=== PATIENT | female | born 1930 | race Caucasian/White ===

== ENCOUNTER 2020-11-06 13:50 | Inpatient (IN) | payer MEDICARE, BC ==
--- NOTE | 2020-11-06 14:15 | EDM.PDOC ---
ED HPI GENERAL MEDICAL PROBLEM - General Chief Complaint: General Stated Complaint: ER Time Seen by Provider: 11/06/20 13:50 Source of Information: Reports: EMS, RN History Limitations: Reports: Altered Mental Status - History of Present Illness INITIAL COMMENTS - FREE TEXT/NARRATIVE: Patient comes into the emergency department with EMS with complaints of an episode of discoloration at the lunch table. Patient is a resident at the local care center and they had stated that the patient was eating lunch and she began to turn blue. Patient is a nonverbal individual who is not able to express her needs. They ended up placing her on an oxygen saturation upon that she was in the 80s he ended up calling 911. Bedtime at 9 1 responders were on scene the patient was back up in the high 90s and color tone was back to normal. The patient never lost responsiveness according to the staff's report. The patient always remained upright. It is unnoted if she had food particles in her mouth but it does not appear that she was coughing according to the EMS report. Patient remained at her baseline by the time that she left care center until she arrived at the emergency department. Is also noted that she did have an abnormal heartbeat according to the retirement staff however is not been noted via EMS or hospital Onset: Sudden Duration: Other Location: Reports: Chest Quality: Reports: Ache Improves with: Reports: None Worsens with: Reports: None Associated Symptoms: Reports: Other - Related Data Allergies Allergy/AdvReac Type Severity Reaction Status Date / Time Sulfa (Sulfonamide Allergy Other Verified 11/06/20 15:22 Antibiotics) Home Meds: Home Meds Acetaminophen [Pain Relief] 650 mg PO Q4H PRN 03/29/15 [History] Aspirin 81 mg PO BRK 03/29/15 [History] Bisacodyl [Dulcolax] 10 mg RECTAL DAILY PRN 03/29/15 [History] Docusate Sodium/Sennosides [Senna Plus] 1 tab PO BID 03/29/15 [History] Donepezil HCl 10 mg PO DAILY 03/29/15 [History] Enoxaparin [Lovenox] 40 mg SUBCUT DAILY 03/29/15 [History] Hydrochlorothiazide 1 tab PO DAILY 03/29/15 [History] Hydrocodone/Acetaminophen [Hydrocodon-Acetaminophen 5-325] 1 each PO Q4H 03/29/15 [History] LORazepam [Ativan] 0.25 mg PO Q4H PRN 03/29/15 [History] Lisinopril 10 mg PO DAILY 03/29/15 [History] Magnesium Hydroxide [Milk of Magnesia] 400 mg PO DAILY 03/29/15 [History] Melatonin 3 mg PO BEDTIME PRN 03/29/15 [History] Multivitamin [Multi-Day Vitamins] 1 each PO DAILY 03/29/15 [History] Phosphorus #1 [Phospha 250 Neutral Tablet] 250 mg PO DAILY 03/29/15 [History] diphenhydrAMINE HCl [Diphenhydramine HCl] 25 mg PO DAILY PRN 03/29/15 [History] traMADol HCl [Ultram] 50 mg PO Q6H PRN 03/29/15 [History] clindamycin HCL [Clindamycin HCl] 300 mg PO TID 7 Days #21 capsule 11/06/20 [Rx] Past Medical History Cardiovascular History: Reports: CAD Musculoskeletal History: Reports: Osteoarthritis Neurological History: Reports: Alzheimers Disease Oncologic (Cancer) History: Reports: Colon, Uterine - Past Surgical History Musculoskeletal Surgical History: Reports: Other (See Below) ED ROS GENERAL - Review of Systems Review Of Systems: Comprehensive ROS is negative, except as noted in HPI. Constitutional: Reports: No Symptoms HEENT: Reports: No Symptoms Respiratory: Reports: Shortness of Breath Cardiovascular: Reports: No Symptoms Endocrine: Reports: No Symptoms GI/Abdominal: Reports: No Symptoms : Reports: No Symptoms Musculoskeletal: Reports: No Symptoms Skin: Reports: No Symptoms Neurological: Reports: No Symptoms Psychiatric: Reports: No Symptoms Hematologic/Lymphatic: Reports: No Symptoms Immunologic: Reports: No Symptoms ED EXAM, GENERAL - Physical Exam Exam: See Below Exam Limited By: No Limitations General Appearance: Alert, WD/WN, No Apparent Distress Eye Exam: Bilateral Eye: EOMI, PERRL Throat/Mouth: Normal Inspection, Normal Lips, Normal Teeth, Normal Gums, Normal Oropharynx, Normal Voice, No Airway Compromise Head: Atraumatic, Normocephalic Neck: Normal Inspection, Supple, Non-Tender, Full Range of Motion Respiratory/Chest: No Respiratory Distress, Lungs Clear, Normal Breath Sounds, No Accessory Muscle Use, Chest Non-Tender Cardiovascular: Normal Peripheral Pulses, Regular Rate, Rhythm, No Edema #1 Interpretation EKG Date: 11/06/20 Rhythm: NSR Rate (Beats/Min): 94 [place]: Normal P-Wave: Present ST-T: Normal QT: Normal Comparison: NA - No Prior EKG Course - Orders/Labs/Meds Orders: Active Orders 24 hr Category Date Time Status EKG Documentation Completion [RC] STAT Care 11/06/20 13:59 Active CBC WITH AUTO DIFF [HEME] Stat Lab 11/06/20 14:40 Received COMPREHENSIVE METABOLIC PN,CMP [CHEM] Stat Lab 11/06/20 14:40 Received CREATINE KINASE,CK [CHEM] Stat Lab 11/06/20 14:40 Received CULTURE BLOOD [BC] Stat Lab 11/06/20 14:26 Ordered CULTURE BLOOD [BC] Stat Lab 11/06/20 14:26 Ordered LACTIC ACID [CHEM] Stat Lab 11/06/20 14:40 Received TROPONIN I HIGH SENSITIVITY [CHEM] Stat Lab 11/06/20 14:40 Received Blood Culture x2 Reflex Set [OM.PC] Stat Oth 11/06/20 14:26 Ordered Meds: Medications Discontinued Medications Generic Name Dose Route Start Last Admin Trade Name Mannyq PRN Reason Stop Dose Admin Clindamycin HCl 1 packet 11/06/20 15:05 Take Home: Clindamycin Hcl 150 Mg Cap, 6 Cap Pack PO 11/06/20 15:06 ONETIME ONE Ceftriaxone Sodium 1 gm/ 0 gm 11/06/20 14:25 Lidocaine HCl 2.1 ml IM 11/06/20 14:26 ONETIME ONE Departure - Departure Time of Disposition: 15:20 Disposition: Admitted As Inpatient 67 Condition: Fair Clinical Impression: Aspiration into airway Qualifiers: Encounter type: initial encounter Qualified Code(s): T17.908A - Unspecified foreign body in respiratory tract, part unspecified causing other injury, initial encounter Aspiration pneumonia Qualifiers: Aspiration pneumonia type: unspecified Laterality: unspecified laterality Lung location: unspecified part of lung Qualified Code(s): J69.0 - Pneumonitis due to inhalation of food and vomit - Discharge Information *PRESCRIPTION DRUG MONITORING PROGRAM REVIEWED*: Not Applicable *COPY OF PRESCRIPTION DRUG MONITORING REPORT IN PATIENT RIVER: Not Applicable Prescriptions: clindamycin HCL [Clindamycin HCl] 300 mg PO TID 7 Days #21 capsule Additional Instructions: 1. rest 2. increase your water intake 3. Take all antibiotics as prescribed even if feeling better 4. Take a probiotic while on antibiotics to help promote healthy GI motility 5. Activity and diet as tolerated 6. Can use Ibuprofen and tylenol for any fever or discomfort 7. Follow up with your PCP or return if symptoms progress or worsen 8. Education provided to you regarding your illness, probiotics, antibiotic prescribed 9. Call with any questions or concerns 10. Would advise cutting up food for patient or having nurtition specialist evaluate safe food intake for the patient to prevent this in the future. - My Orders Last 24 Hours: My Active Orders 11/06/20 13:59 EKG Documentation Completion [RC] STAT 11/06/20 14:26 CULTURE BLOOD [BC] Stat CULTURE BLOOD [BC] Stat Blood Culture x2 Reflex Set [OM.PC] Stat 11/06/20 14:40 CBC WITH AUTO DIFF [HEME] Stat COMPREHENSIVE METABOLIC PN,CMP [CHEM] Stat CREATINE KINASE,CK [CHEM] Stat LACTIC ACID [CHEM] Stat TROPONIN I HIGH SENSITIVITY [CHEM] Stat - Assessment/Plan Last 24 Hours: My Active Orders 11/06/20 13:59 EKG Documentation Completion [RC] STAT 11/06/20 14:26 CULTURE BLOOD [BC] Stat CULTURE BLOOD [BC] Stat Blood Culture x2 Reflex Set [OM.PC] Stat 11/06/20 14:40 CBC WITH AUTO DIFF [HEME] Stat COMPREHENSIVE METABOLIC PN,CMP [CHEM] Stat CREATINE KINASE,CK [CHEM] Stat LACTIC ACID [CHEM] Stat TROPONIN I HIGH SENSITIVITY [CHEM] Stat Assessment:: 1. low O2 2. blue episode while eating 3. Aspiration pneumonia Plan: 1. Sepsis protocol initiated and followed 2. Labs completed in the ER. Results reviewed with the patient 3. Blood cultures completed 4. IV initiated in the emergency department 5. IV fluids provided 6. EKG completed in ER. 7. Rocephin 1gm given 8. Consultation complete with Dr. Ponce. Patient will be admitted to acute care 9. Patient and nursing staff was updated regarding the plan of care 10. Patient and family are agreeable to the above plan of care 11. All questions and concerns were addressed with the patient and family prior to discharge
[2020-11-06] MEDS ORDERED: cefTRIAXone 1 GM, Lidocaine 1% 2.1 ML IM ONE ×2 (14:25)
--- NOTE | 2020-11-06 15:03 | CR ---
[id number] RAD/RAD Chest PA or AP 1V EXAM: SINGLE VIEW CHEST. INDICATION: HYPOXIA COMPARISON: NO PREVIOUS SIMILAR EXAM IS AVAILABLE FINDINGS: There is no pneumonia or edema. The thoracic aorta is tortuous The cardiac silhouette is enlarged IMPRESSION: NO PNEUMONIA OR EDEMA Malvin Barnard MD 11/06/20 [id number] Thank you for allowing us to participate in the care of your patient.
[2020-11-06] MEDS ORDERED: Take Home: Clindamycin HCl 150 MG Cap, 6 Cap Pack PO ONE (15:05)
[2020-11-06 15:16] LABS: CHLORIDE,CL 106 mmol/L (98-107); SODIUM,NA 140 mmol/L (136-145)
[2020-11-06 15:25] LABS: ANION GAP 11.3 mmol/L (5-15)
[2020-11-06] MEDS ORDERED: Sodium Chloride 0.9% 1,000 ML IV ONE (16:06)
[2020-11-06] MEDS ORDERED: Sodium Chloride 0.9% 10 ML Syringe FLUSH PRN (16:37)
[2020-11-06] MEDS ORDERED: Acetaminophen 325 MG Tab PO PRN (16:37)
[2020-11-06] MEDS: Clindamycin Phosphate in D5W 600 MG in Premix Bag 1 BAG IV SCH ×2 (17:44)
[2020-11-06] MEDS: Donepezil 10 MG Tab PO SCH (19:27)
[2020-11-07] MEDS: Clindamycin Phosphate in D5W 600 MG in Premix Bag 1 BAG IV SCH ×6 (00:18→16:43)
[2020-11-07] MEDS: Dextrose 5%-0.45% NaCl 1,000 ML IV SCH ×2 (00:28→15:38)
[2020-11-07] MEDS: Lisinopril 5 MG Tab PO SCH (07:38)
[2020-11-07] MEDS: cefTRIAXone 1 GM Vial IVPUSH SCH (07:39)
[2020-11-07] MEDS: Aspirin 81 MG Tab.EC PO SCH (07:39)
[2020-11-07] MEDS ORDERED: Enoxaparin 30 MG/0.3 ML Syringe SUBCUT SCH (12:00)
[2020-11-07] MEDS: Donepezil 10 MG Tab PO SCH (19:18)
[2020-11-08] MEDS: Clindamycin Phosphate in D5W 600 MG in Premix Bag 1 BAG IV SCH ×4 (00:10→08:00)
[2020-11-08 07:23] LABS: ANION GAP 9.6 mmol/L (5-15)
[2020-11-08] MEDS: Lisinopril 5 MG Tab PO SCH (07:54)
[2020-11-08] MEDS: Aspirin 81 MG Tab.EC PO SCH (07:54)
[2020-11-08] MEDS: cefTRIAXone 1 GM Vial IVPUSH SCH (07:54)
[2020-11-08 10:15] VITALS: BP 121/78; PULSE 95
--- NOTE | 2020-11-08 12:43 | PCM.DCSUM1 ---
Discharge Summary - Hospital Course Free Text/Narrative:: 89 yo admitted after a choking episode at [facility] then she become hypoxic and turned blue after eating on 11/06. She has dementia so history is limited from her. WBC was 19,000. She got IV rocephin and Clindamycin. She required oxygen. Brief History: Patient admitted for hypoxia after choking. Chest x-ray did not yet show an infiltrate but she was requiring oxygen and WBC 19,000. There was concern for aspiration pneumonia. She was placed on IV rocephin and IV clindamycin but was able to eat and drink and WBC count returned to normal today and she was felt to be at her baseline which is confusion due to dementia so plans were made to d/c her back to [facility]. Both of her COVID tests returned normal. She was able to be weaned off oxygen. Diagnosis: Stroke: No - Discharge Data Discharge Date: 11/08/20 Discharge Disposition: DC/Tfer to [facility] 64 Condition: Fair - Referral to Home Health Primary Care Physician: Crista Sequeira MD - Patient Instructions Diet: Usual Diet as Tolerated Activity: As Tolerated Driving: Do Not Drive Notify Provider of: Fever, Increased Pain, Swelling and Redness, Nausea and/or Vomiting Other/Special Instructions: Stop Keflex. Augmentin twice daily for 3 more days or 5 doses. Return to [facility] with PT/OT/Speech eval. [facility] standing orders. Recheck with Dr. Sequeira on [place] rounds - Discharge Plan *PRESCRIPTION DRUG MONITORING PROGRAM REVIEWED*: Not Applicable *COPY OF PRESCRIPTION DRUG MONITORING REPORT IN PATIENT RIVER: Not Applicable Prescriptions/Med Rec: Amoxicillin/Clavulanate K [Augmentin 600-42.9 MG/5 ML Susp] 600 mg PO BIDMEALS 2 Days #1 bottle Home Medications: Home Meds Aspirin 81 mg PO DAILY 03/29/15 [History] Docusate Sodium/Sennosides [Senna Plus] 1 tab PO MOWEFR@0800 03/29/15 [History] Donepezil HCl 10 mg PO ACDINNER 03/29/15 [History] Hydrochlorothiazide 12.5 mg PO DAILY 03/29/15 [History] Multivitamin [Multi-Day Vitamins] 1 tab PO DAILY 03/29/15 [History] cephALEXin [Cephalexin] 500 mg PO BID 11/06/20 [History] lisinopriL [Lisinopril] 5 mg PO DAILY 11/06/20 [History] Acetaminophen [Tylenol] 650 mg PO Q4H PRN tablet 11/08/20 [Rx] Amoxicillin/Clavulanate K [Augmentin 600-42.9 MG/5 ML Susp] 600 mg PO BIDMEALS 2 Days #1 bottle 11/08/20 [Rx] Oxygen Therapy Mode: Room Air Referrals: Crista Sequeira MD [Primary Care Provider] - - Discharge Summary/Plan Comment DC Time >30 min.: No - General Info Date of Service: 11/08/20 Subjective Update: Hx limited from the patient due to her dementia Functional Status: Reports: Pain Controlled - Review of Systems General: Denies: Fever, Chills Pulmonary: Denies: Shortness of Breath, Cough Cardiovascular: Denies: Chest Pain Psychiatric: Reports: Confusion - Patient Data Vitals - Most Recent: Last Vital Signs Temp 98.3 F 11/08/20 10:00 Pulse 95 11/08/20 10:00 Resp 16 11/08/20 10:00 BP 121/78 11/08/20 10:00 Pulse Ox 98 11/08/20 10:00 Weight - Most Recent: 109 kg I&O - Last 24 hours: Intake & Output 11/07/20 11/08/20 11/08/20 22:59 06:59 14:59 Intake Total 1036 100 140 Balance 1036 100 140 Lab Results - Last 24 hrs: Laboratory Results - last 24 hr 11/08/20 11/08/20 Range/Units 06:28 09:10 Sodium 140 (136-145) mmol/L Potassium 3.6 (3.5-5.1) mmol/L Chloride 108 H (98-107) mmol/L Carbon Dioxide 26 (21-32) mmol/L Anion Gap 9.6 (5-15) mmol/L BUN 17 (7-18) mg/dL Creatinine 1.1 H (0.55-1.02) mg/dL Est Cr Clr Drug Dosing 27.42 mL/min Estimated GFR (MDRD) 47 Glucose 108 H (70-99) mg/dL Calcium 7.9 L (8.5-10.1) mg/dL SARS CoV-2 RNA Rapid JEROME Negative (NEGATIVE) ERNA Results - Last 24 hrs: Microbiology 11/06/20 14:45 Aerobic Blood Culture - Preliminary Blood - Venous - Lab Draw NO GROWTH AFTER 1 DAY Anaerobic Blood Culture - Preliminary NO GROWTH AFTER 1 DAY 11/06/20 14:40 Aerobic Blood Culture - Preliminary Blood - Venous NO GROWTH AFTER 1 DAY Anaerobic Blood Culture - Preliminary NO GROWTH AFTER 1 DAY 11/06/20 18:39 MRSA Surveillance Culture - Final Nares, Unspecified NO MRSA ISOLATED Med Orders - Current: Current Medications Discontinued Medications Acetaminophen (Acetaminophen 325 Mg Tab) 650 mg PO Q4H PRN PRN Reason: Pain (Mild 1-3)/fever Amoxicillin/Clavulanate Potassium (Amoxicillin/Clavulanate K 600-42.9 Mg/5 Ml Susp 125 Ml Bottle) 600 mg PO BIDMEALS [facility] Aspirin (Aspirin 81 Mg Tab.Ec) 81 mg PO WITHBREAKFAST [facility] Last Admin: 11/08/20 07:54 Dose: 81 mg Documented by: Ceftriaxone Sodium (Ceftriaxone 1 Gm Vial) 1 gm IVPUSH DAILY [facility] Last Admin: 11/08/20 07:54 Dose: 1 gm Documented by: Clindamycin HCl (Take Home: Clindamycin Hcl 150 Mg Cap, 6 Cap Pack) 1 packet PO ONETIME ONE Stop: 11/06/20 15:06 Last Admin: 11/06/20 17:00 Dose: Not Given Documented by: Ceftriaxone Sodium 1 gm/ (Lidocaine HCl 2.1 ml) 0 gm IM ONETIME ONE Stop: 11/06/20 14:26 Last Admin: 11/06/20 14:10 Dose: 1 inj Documented by: Donepezil HCl (Donepezil 10 Mg Tab) 10 mg PO BEDTIME [facility] Last Admin: 11/07/20 19:18 Dose: 10 mg Documented by: Enoxaparin Sodium (Enoxaparin 30 Mg/0.3 Ml Syringe) 30 mg SUBCUT DAILY@1200 [facility] Last Admin: 11/07/20 12:07 Dose: 30 mg Documented by: Sodium Chloride (Normal Saline) 1,000 mls @ 125 mls/hr IV ONETIME ONE Stop: 11/07/20 00:05 Last Admin: 11/06/20 17:44 Dose: 125 mls/hr Documented by: Clindamycin Phosphate 600 mg/ (Premix) 50 mls @ 150 mls/hr IV Q8H [facility] Last Admin: 11/08/20 08:00 Dose: 150 mls/hr Documented by: Dextrose/Sodium Chloride (Dextrose 5%-1/2 Ns) 1,000 mls @ 75 mls/hr IV ASDIRECTED [facility] Last Admin: 11/07/20 15:38 Dose: 75 mls/hr Documented by: Lisinopril (Lisinopril 5 Mg Tab) 5 mg PO DAILY [facility] Last Admin: 11/08/20 07:54 Dose: 5 mg Documented by: Senna/Docusate Sodium (Docusate Sodium/Sennosides 50-8.6 Mg Tab) 1 tab PO DAILY PRN PRN Reason: Constipation Sodium Chloride (Sodium Chloride 0.9% 10 Ml Syringe) 10 ml FLUSH ASDIRECTED PRN PRN Reason: Keep Vein Open - Exam General: Reports: Alert. Denies: Oriented HEENT: Reports: Pupils Equal Neck: Reports: Supple, Trachea Midline, No JVD Lungs: Reports: Clear to Auscultation, Normal Respiratory Effort Cardiovascular: Reports: Regular Rate, Regular Rhythm GI/Abdominal Exam: Normal Bowel Sounds, Soft, Non-Tender Extremities: Normal Inspection, No Pedal Edema Skin: Reports: Warm, Dry Psy/Mental Status: Reports: Agitated (at first wanted to return home but then didn't want to leave)
[2020-11-08] MEDS ORDERED: Amoxicillin/Clavulanate K 600-42.9 MG/5 ML Susp 125 ML Bottle PO SCH (18:00)
--- NOTE | 2020-11-10 16:13 | HP ---
CHIEF COMPLAINT: The patient unable to give any. HISTORY OF PRESENT ILLNESS: The patient was sent from the care home because she while having lunch became cyanotic, had "muscle spasms" and irregular heart beat. They said her pulse was between 90 and 100, blood pressure 138/82, O2 saturation went down to 94%, but requiring 2 L of oxygen, temperature was 98.8 with a respiratory rate of 24. She was thought possibly to have aspirated. 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 Her diagnoses include Alzheimer's disease and she is now admitted for treatment of possible aspiration pneumonia. 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 ALLERGIES: It appears that she is allergic to sulfa medications. PRESENT MEDICATIONS: Baby aspirin once a day, cephalexin that was ordered on 11/05/2020 for possible cellulitis of the right hand, donepezil 10 mg daily, hydrochlorothiazide 12.5 mg a day, lisinopril 5 mg once day, and vitamin pill once a day. HABITS: No smoking is known. She is allowed to have 1 alcohol drink daily per hospitality card. FAMILY HISTORY: Unable to get any. SOCIAL HISTORY: The patient is a resident of the care home. According to nurse practitioner, her daughter gave permission for her to be treated at the hospital and she is a code level 2. REVIEW OF SYSTEMS: The patient really is unable to give any. When I asked her if she is feeling okay, she gives an inappropriate answer. PHYSICAL EXAMINATION: General: Reveals an overweight female, lying in bed without any oxygen, in no acute distress. Vital Signs: In the ER, she had a blood pressure of 141/71, temperature 99.2, heart rate 98, respiratory rate of 16, and O2 saturation of 91% on 1 L. Up on the floor, her blood pressure continued to be stable, her O2 saturation was 90% on room air, temperature is 98.3. Skin: She has a red rash on her face, appears to be without scaling and there is also a brawny induration on her right hand. No decubiti noted. Lymph: None palpable in the neck, groin, or axilla. HEENT: The patient was really unable to follow commands, but there is no facial asymmetry noted. Lungs: There are rales and wheezes on the right lung. Left field is clear. Cor: S1 and S2 normal without rubs, murmurs, or gallops. Breasts: Without masses. Abdomen: Soft and nontender. Extremities: Showed no clubbing or cyanosis. There is 1+ edema bilaterally. Neurologic: No facial asymmetry. The patient is moving her arms and hands symmetrically. She moves her right toes, but is having difficulty getting her left leg to move. According to the ER nurse, she was moving both legs down in the emergency room. The patient does not respond to commands. LABORATORY WORK: EKG shows a normal sinus rhythm, left axis deviation, inferior wall [place] of unknown age. White count 19,500, hemoglobin 14, hematocrit 41.8, 90 polys, 2 lymphs, 5 mons, 1 eos. Sodium 140, potassium 4.3, chloride 106, CO2 of 27, BUN 27, creatinine 1.7, GFR estimated at 28, glucose was 190, lactic acid was 2.8. LFTs, CK, troponin, and COVID test were all negative. Chest x-ray was an AP film. It was rotated. No obvious infiltrates were seen. IMPRESSION: 1. By history, it appears the patient may have aspirated. She will be covered with Rocephin and clindamycin. We will keep her on clear liquids for now and give supplemental O2. 2. Alzheimer's disease. Continue with donepezil. 3. Hypertension. Hold off hydrochlorothiazide for now. We will give her a small amount of fluid, D5 1/2 normal saline. 4. Facial rash. This appears to be a chronic rash perhaps. We will await PCP assessment of this. 5. Question of right hand cellulitis. We will observe and use heat packs on the same. 6. The patient's code level is 2 according to her chart and nurse practitioner was going to confirm this. MZL: 11/06/2020 17:09:14 MODL: 11/06/2020 19:28:16 /[id number]
--- NOTE | 2020-11-10 16:13 | PN ---
Progress Note for IVAN GILL Date: 11/07/2020 Room #: VM.215 SUBJECTIVE: The patient has no complaints. OBJECTIVE: Vital Signs: Stable. She has been afebrile. O2 sat is 94% on room air. Lungs: No wheezing. On the right, she does have bilateral rales. Cor: S1, S2 without rubs, murmurs, or gallops. Extremities: There is no edema today. Neurologic: She is still not moving, not responding to commands very well, but she has no facial asymmetry. She appears quite confused. She is awake. LABORATORY DATA: Her white count is down from 19,500 to 10,000. Hemoglobin is 12.4, platelets 232,000. D-dimer yesterday was just slightly elevated at 0.96. Nurse reports that she is able to take fluids well without choking. IMPRESSION: 1. Probable aspiration pneumonia. Continue with Rocephin and clindamycin. White count is down. Her oxygenation is improved. 2. Dementia. Continue with Aricept. Care will be assumed by Dr. Ese Wood in the absence of Dr. Sequeira tomorrow. MZL: 11/07/2020 09:12:28 MODL: 11/07/2020 10:00:07 /[id number]
== END 2020-11-08 10:02 | DRG 178 ==
LOC: VM.ED 13:50 → VM.MS 15:55
PROVIDERS: ADMIT Internal Medicine; ATTEND Family Medicine
DX: J69.0 Pneumonitis due to inhalation of food and vomit (principal); Z68.41 Body mass index [BMI] 40.0-44.9, adult; T17.908A Unspecified foreign body in respiratory tract, part unspecified causing other injury, initial encounter; F03.90 Unspecified dementia, unspecified severity, without behavioral disturbance, psychotic disturbance, mood disturbance, and anxiety; E66.9 Obesity, unspecified; N18.30 Chronic kidney disease, stage 3 unspecified; I25.10 Atherosclerotic heart disease of native coronary artery without angina pectoris; M19.90 Unspecified osteoarthritis, unspecified site; G30.9 Alzheimer's disease, unspecified; F02.80 Dementia in other diseases classified elsewhere, unspecified severity, without behavioral disturbance, psychotic disturbance, mood disturbance, and anxiety; Z20.822 Contact with and (suspected) exposure to COVID-19; Z85.038 Personal history of other malignant neoplasm of large intestine; Z85.42 Personal history of malignant neoplasm of other parts of uterus; Z79.82 Long term (current) use of aspirin; Z79.899 Other long term (current) drug therapy; Z88.2 Allergy status to sulfonamides
CPT/HCPCS: 36415; 71045; 80048; 80053; 82550; 83605; 84484; 85025; 85379; 87040; 93005; 96372; 99285-25; A9270-GY; J0696; J1650; J3490; J7030; J7042; U0002